=== PATIENT | male | born 1995 | race Two or more races ===

== ENCOUNTER 2018-02-05 16:17 | Emergency (ER) | payer SELFPAY ==
[~2018-02-05] VITALS: Ht 170.2 cm; Wt 65.5 kg
[2018-02-05 16:22] VITALS: BP 122/56
[2018-02-05] MEDS ORDERED: IBUPROFEN 200 MG TABLET PO ONE (17:00)
== END 2018-02-05 17:10 ==
LOC: ED 17:04
DX: M54.2 Cervicalgia (principal); M25.511 Pain in right shoulder
CPT/HCPCS: 99283

== ENCOUNTER 2018-02-13 11:18 | Emergency (ER) | payer SELFPAY ==
[~2018-02-13] VITALS: Ht 167.6 cm; Wt 65.1 kg
[2018-02-13 11:33] VITALS: BP 148/68
== END 2018-02-13 12:33 | disposition home or self-care (01) ==
LOC: ED 12:27
DX: J02.8 Acute pharyngitis due to other specified organisms (principal); B97.89 Other viral agents as the cause of diseases classified elsewhere; S29.012A Strain of muscle and tendon of back wall of thorax, initial encounter; X58.XXXA Exposure to other specified factors, initial encounter; Y93.89 Activity, other specified; Y99.8 Other external cause status; Y92.89 Other specified places as the place of occurrence of the external cause
CPT/HCPCS: 87081; 87880; 99283